=== PATIENT | male | born 1950 | race Caucasian/White ===

== ENCOUNTER → 2016-07-22 | Outpatient (CLI) | payer MEDICARE ==
[~2016-07-22] MED LIST: AMLO5TAB2 PO; CARV25TA PO; CIPR0.3S2 RIGHT EYE; DIFL0.0512 RIGHT EYE; FOLI800T PO; FURO40TA PO; METH2.5T PO; NEPA0.3D RIGHT EYE; VALS1TAB65 PO; VIGA0.5D RIGHT EYE
[2016-07-22 11:24] LABS: BASOPHIL % 0.5 % (0.0-2.0); EOSINOPHIL # 0.3 TH/MM3 (0-0.4); EOSINOPHIL % 3.4 % (0.0-4.0); HEMATOCRIT 44.7 % (39.0-51.0); HEMO FLAGS DIFF FINAL; LYMPH % 25.2 % (9.0-44.0); MEAN CORPUSCULAR HGB CONC 32.9 % (32.0-36.0); NEUT % 61.9 % (16.0-70.0); PLATELET COUNT 214 TH/MM3 (150-450); RED BLOOD COUNT 4.91 MIL/MM3 (4.50-5.90)
--- NOTE | 2016-07-23 13:38 | EKG ---
Date Performed: 07/22/2016 Time Performed: 10:58:48 PTAGE: 66 years EKG: Sinus rhythm Leftward axis IV conduction defect Inferior infarct - age undetermined Possible anterior infarct - a ge undetermined Lateral T wave changes are nonspecific Abnormal ECG NO PREVIOUS TRACING DOCTOR: Mark Gonzales Interpretating Date/Time 07/23/2016 13:38:23
== END ==
LOC: PHPRE 10:26
PROVIDERS: ATTEND Ophthalmology
DX: Z01.812 Encounter for preprocedural laboratory examination (principal); Z01.810 Encounter for preprocedural cardiovascular examination; H25.013 Cortical age-related cataract, bilateral; I10 Essential (primary) hypertension; R94.31 Abnormal electrocardiogram [ECG] [EKG]
CPT/HCPCS: 36415; 85025; 93005

== ENCOUNTER → 2016-07-31 | Day surgery (SDC) | payer MEDICARE ==
[~2016-07-31] VITALS: Ht 177.8 cm; Wt 92.5 kg
[~2016-07-31] MED LIST changes: +CYCLOPENTOLATE HCL 1% OPHT SOLN 2 ML BTL ONE; +HYALURONIDASE/LIDOCAINE/EPINEPHRINE/BUPIVACAINE 4.5 ML SYR ONE; +HYALURONIDASE/LIDOCAINE/EPINEPHRINE/BUPIVACAINE 6 ML SYR ONE; +PHENYLEPHRINE HCL 10% OPTH SOLN 5 ML BTL ONE; +PROPOFOL 200 MG/20 ML AMP ONE; +SODIUM CHLORID 0.9% 500 ML INJ 500 ML ONE; +TROPICAMIDE 1% OPHT SOLN 15 ML BTL ONE
[2016-07-31 06:35] VITALS: BP 180/110; PULSE 59; RESP 16; TEMP 98.8; O2SAT 97
[2016-07-31 06:37] VITALS: PULSE 59
[2016-07-31] MEDS: TETRACAINE 0.5% OPTH SOLN 4 ML BTL ONE ×2 (06:38→08:19)
[2016-07-31 07:57] VITALS: PULSE 63
[2016-07-31] MEDS: TOBRAMYCIN/DEXAMETHASONE OPTH OINT 3.5 GM TUBE ONE ×2 (08:52)
[2016-07-31 08:58] VITALS: TEMP 98.7
--- NOTE | 2016-07-31 09:19 | PD.OP ---
Operative Report Date of Surgery: July 31, 2016 Preoperative Diagnosis: (1) Cortical age-related cataract of right eye Postoperative Diagnosis: (1) Pseudophakia of right eye Procedure: phacoemulsification and intraocular lens implant right eye Anesthesia: MAC, retrobulbar block Surgeon: Florecita León Erp Pm(s): none Operation and Findings: Patient was consented for surgery, given a retrobulbar block by anesthesia, and taken back to the operating room. He was prepped and draped in the usual sterile fashion for ophthalmic surgery. A wire lid speculum was placed in the right eye. A paracentesis incision was created at the 11 o'clock position on the limbus. Vision blue dye and viscoelastic was injected into the anterior chamber. The main incision was created at the 8 o'clock position on the limbus with a 2.4 mm keratome. A continuous curvilinear capsulorrhexis was made on the anterior lens capsule. BSS was used to hydrodissect the lens nucleus from the capsule. Phacoemulsification was used to remove the lens nucleus material. Irrigation and aspiration was used to remove the remaining cortical material. The lens implant ([id number] 18.5 D SN [id number]) was placed in the capsular bag. Viscoelastic was removed with irrigation and aspiration. The incisions were irrigated and found to be watertight. Tobradex ointment, a patch, and shield were placed on the right eye. The patient was sent to PACU in stable condition. Florecita León MD July 31, 2016 09:19
[2016-07-31 09:20] VITALS: BP 144/95; PULSE 61; RESP 16; O2SAT 97
== END | disposition home or self-care (01) ==
LOC: PHSDC 06:20 → EDUNIT# 08:30
PROVIDERS: ATTEND Ophthalmology
DX: H25.011 Cortical age-related cataract, right eye (principal); H27.8 Other specified disorders of lens; I10 Essential (primary) hypertension; Z85.828 Personal history of other malignant neoplasm of skin
CPT/HCPCS: 66984; J7040; V2632